=== PATIENT | female | born 1980 | race Asian ===

== ENCOUNTER → 2019-05-18 | Outpatient (CLI) | payer OTHER ==
[2019-05-21 12:00] LABS: QUANTIFERON+, Nil Value 0.13 IU/mL; QUANTIFERON+,Mitogen Value >10.00 IU/mL; QUANTIFERON+,TB1 Antigen Value 0.07 IU/mL; QUANTIFERON, TB GOLD PLUS Negative (Negative)
== END | disposition home or self-care (01) ==
LOC: LABPV 13:33
PROVIDERS: ATTEND Family Medicine
DX: Z02.89 Encounter for other administrative examinations (principal)
CPT/HCPCS: 86480; 86592; 86706; 86735; 86787; 86803; 87350; 87491; 87591